=== PATIENT | male | born 1950 | race African-American/Black ===

== ENCOUNTER → 2016-12-22 | Outpatient (CLI) | payer MEDICARE, MEDICAID ==
[~2016-12-22] MED LIST: ALDACTONE 25MG25 M1 PO; ASPIRIN 32325 MG/TAB PO; ASPIRIN E.C. 8181 MG PO; CORDARONE200 MG/TAB PO; COREG 25MG25 MG/TAB PO; COREG12.5 MG PO; EPOGEN MU IV; FLOVENT DI50 MCG/Act; FOLIC ACID 11 MG/TA1 PO; LASIX 20MG TABL20 MG PO; LASIX 40MG TABL40 MG PO; LEVAQUIN 5500 MG/TA1 PO; LEVAQUIN 750MG750 M1 PO; NEPHROCAP PO; NORVASC 10MG10 MG PO; PHOSLO667 MG PO; PLAVIX 75MG TAB75 MG PO; PRINIVIL5 MG PO; RENA-VITE1 TAB PO; RT ADVAIR 528 DISKUS IH; TOPROL XL100 MG PO; TYLENOL 325MG325 MG PO; UNABLE; VIA IV; ZEMPLAR0.002 MG/M IV; ZYLOPRIM 100MG100 MG PO; ZYLOPRIM 300MG300 MG PO
== END ==
LOC: COL.VAS 10:40
DX: I36.1 Nonrheumatic tricuspid (valve) insufficiency (principal); I50.9 Heart failure, unspecified; I51.7 Cardiomegaly; Z87.891 Personal history of nicotine dependence